=== PATIENT | female | born 1955 | race Caucasian/White ===

== ENCOUNTER 2016-06-26 14:20 | Emergency (ER) | payer OTHER ==
[2016-06-26 16:43] VITALS: BP 123/70
== END 2016-06-26 16:43 | disposition home or self-care (01) ==
LOC: ED 14:20
DX: R10.13 Epigastric pain (principal); I10 Essential (primary) hypertension; E78.00 Pure hypercholesterolemia, unspecified; Z88.1 Allergy status to other antibiotic agents; Z88.6 Allergy status to analgesic agent
CPT/HCPCS: J1885

== ENCOUNTER 2016-06-28 18:20 | Emergency (ER) | payer OTHER | END 2016-06-28 19:40 | disposition left against medical advice (07) | LOC: ED 18:20 | DX: Z53.21 Procedure and treatment not carried out due to patient leaving prior to being seen by health care provider (principal) ==

== ENCOUNTER 2017-03-22 10:27 | Emergency (ER) | payer SELFPAY ==
[2017-03-22 11:59] VITALS: BP 136/89
== END 2017-03-22 11:59 | disposition home or self-care (01) ==
LOC: ED 10:27
DX: K52.9 Noninfective gastroenteritis and colitis, unspecified (principal); I10 Essential (primary) hypertension; E78.00 Pure hypercholesterolemia, unspecified; Z88.1 Allergy status to other antibiotic agents; Z88.6 Allergy status to analgesic agent
CPT/HCPCS: Q0162

== ENCOUNTER 2017-05-29 08:50 | Emergency (ER) | payer MEDICAID ==
[~2017-05-29] VITALS: Ht 170.2 cm; Wt 102.0 kg
[2017-05-29 08:56] VITALS: Ht 170.2 cm; Wt 102.0 kg
[2017-05-29 10:39] VITALS: BP 138/65
== END 2017-05-29 10:39 | disposition home or self-care (01) ==
LOC: ED 08:50
DX: S29.012A Strain of muscle and tendon of back wall of thorax, initial encounter (principal); I10 Essential (primary) hypertension; E78.00 Pure hypercholesterolemia, unspecified; Z88.1 Allergy status to other antibiotic agents; Z88.8 Allergy status to other drugs, medicaments and biological substances; X58.XXXA Exposure to other specified factors, initial encounter; Y93.89 Activity, other specified; Y99.8 Other external cause status; Y92.89 Other specified places as the place of occurrence of the external cause
CPT/HCPCS: J1885; Q0092

== ENCOUNTER 2017-08-17 19:03 | Emergency (ER) | payer OTHER ==
[~2017-08-17] VITALS: Ht 170.2 cm; Wt 103.9 kg
[2017-08-17 19:17] VITALS: BP 141/73; Ht 170.2 cm; Wt 103.9 kg
== END 2017-08-17 21:04 | disposition left against medical advice (07) ==
LOC: ED 19:03
DX: Z53.21 Procedure and treatment not carried out due to patient leaving prior to being seen by health care provider (principal)

== ENCOUNTER 2017-09-17 07:01 | Inpatient (IN) | payer OTHER ==
[~2017-09-17] VITALS: Ht 170.2 cm; Wt 103.0 kg
[2017-09-17 07:05] VITALS: Ht 170.2 cm; Wt 103.0 kg
[2017-09-17 07:38] LABS: BASOPHIL % 0.5 % (0-2); PLATELET COUNT 253 x10^3mcL (130-400); RED CELL DISTRIBUTION WIDTH 13.5 % (11.5-14.5)
[2017-09-17 07:47] LABS: microscopic required? YES; urine erythrocyte NEGATIVE (NEGATIVE)
[2017-09-17 07:53] LABS: ALBUMIN 4.2 g/dL (3.4-5.0); BILIRUBIN TOTAL 0.32 mg/dL (0.20-1.00); CALCIUM 9.1 mg/dL (8.5-10.1); CARBON DIOXIDE 27.2 mmol/L (21-32); CREATININE SERUM 1.1 mg/dL (0.6-1.0)
[2017-09-17 08:04] LABS: TOTAL PROTEIN, SERUM 8.3 g/dL (6.4-8.2)
[2017-09-17 08:05] LABS: POTASSIUM SERUM 2.6 mmol/L (3.5-5.1)
[2017-09-17] MEDS ORDERED: ZESTRIL20 MG PO (08:15)
[2017-09-17] MEDS ORDERED: PRAVASTATIN SOD10 M1 PO (08:15)
[2017-09-17] MEDS ORDERED: HYDROCHLOROTHIA25 MG PO (08:15)
[2017-09-17 11:19] VITALS: BP 119/63
[2017-09-17 11:36] LABS: CHOLESTEROL/HDL RATIO 4.1; MAGNESIUM 1.9 mg/dL (1.8-2.4); PHOSPHOROUS 2.6 mg/dL (2.5-4.9)
[2017-09-17 11:45] LABS: FREE T4 1.03 ng/dL (0.76-1.46); FREE THYROXINE INDEX 3.1 ug/dL (1.4-4.5); T4(THYROXINE) 9.4 ug/dL (4.7-13.3)
[2017-09-17 14:02] LABS: T3 TOTAL 1.55 ng/mL
[2017-09-17 14:35] VITALS: BP 121/67
[2017-09-17 14:58] LABS: CALCIUM 8.2 mg/dL (8.5-10.1); CARBON DIOXIDE 29.9 mmol/L (21-32); CHLORIDE SERUM 106 mmol/L (98-107); GFR1 > 60 mL/min; GLUCOSE SERUM 151 mg/dL (74-106); POTASSIUM SERUM 3.6 mmol/L (3.5-5.1); SODIUM SERUM 144 mmol/L (136-145)
[2017-09-17 15:47] LABS: AMPHETAMINE QUAL UR NONE DETECTED
[2017-09-17 17:57] VITALS: BP 119/66
[2017-09-17 22:08] VITALS: BP 136/72
[2017-09-18 05:15] VITALS: BP 127/69
[2017-09-18 07:17] LABS: BASOPHIL % 0.6 % (0-2); PLATELET COUNT 220 x10^3mcL (130-400); RED CELL DISTRIBUTION WIDTH 13.4 % (11.5-14.5)
[2017-09-18 07:29] LABS: CALCIUM 8.2 mg/dL (8.5-10.1); CARBON DIOXIDE 27.1 mmol/L (21-32); CHLORIDE SERUM 108 mmol/L (98-107); GFR1 > 60 mL/min; GLUCOSE SERUM 109 mg/dL (74-106); POTASSIUM SERUM 3.8 mmol/L (3.5-5.1); SODIUM SERUM 141 mmol/L (136-145)
[2017-09-18 08:00] VITALS: BP 133/80
[2017-09-18 13:20] VITALS: BP 143/56
[2017-09-18 17:00] VITALS: BP 139/67
[2017-09-18 20:59] VITALS: BP 122/71
[2017-09-19 05:38] VITALS: BP 144/72
[2017-09-19 07:03] LABS: CALCIUM 8.3 mg/dL (8.5-10.1); CARBON DIOXIDE 28.2 mmol/L (21-32); CHLORIDE SERUM 109 mmol/L (98-107); CREATININE SERUM 0.8 mg/dL (0.6-1.0); GFR1 > 60 mL/min; GLUCOSE SERUM 105 mg/dL (74-106); MAGNESIUM 2.1 mg/dL (1.8-2.4); PHOSPHOROUS 3.4 mg/dL (2.5-4.9); SODIUM SERUM 144 mmol/L (136-145)
[2017-09-19 07:25] LABS: BASOPHIL % 0.6 % (0-2); PLATELET COUNT 225 x10^3mcL (130-400); RED CELL DISTRIBUTION WIDTH 13.6 % (11.5-14.5)
[2017-09-19] MEDS ORDERED: AUG500 PO (09:05)
[2017-09-19] MEDS ORDERED: LAC PO (09:06)
[2017-09-19 09:43] VITALS: BP 131/76
[2017-09-19 13:01] VITALS: BP 131/76
== END 2017-09-19 13:51 | disposition home or self-care (01) | DRG 463 ==
LOC: ED 07:01 → DU 09:42
PROVIDERS: Emergency Medicine; Family Medicine; Student in an Organized Health Care Education/Training Program
DX: N39.0 Urinary tract infection, site not specified (principal); E87.2 Acidosis; E87.6 Hypokalemia; E86.0 Dehydration; I10 Essential (primary) hypertension; E78.00 Pure hypercholesterolemia, unspecified; G90.8 Other disorders of autonomic nervous system; F17.200 Nicotine dependence, unspecified, uncomplicated; E66.9 Obesity, unspecified; Z68.35 Body mass index [BMI] 35.0-35.9, adult; Z88.6 Allergy status to analgesic agent; Z88.1 Allergy status to other antibiotic agents; Z90.710 Acquired absence of both cervix and uterus
CPT/HCPCS: 83880; 84439; J0696; J2060; J2405; J3480; J7030; Q0092

== ENCOUNTER 2017-11-09 10:04 | Emergency (ER) | payer OTHER ==
[~2017-11-09] VITALS: Ht 170.2 cm; Wt 102.7 kg
[~2017-11-09 10:04] MED LIST: AUG500 PO; HYDROCHLOROTHIA25 MG PO; LAC PO; PRAVASTATIN SOD10 M1 PO; ZESTRIL20 MG PO
[2017-11-09 10:29] VITALS: BP 147/66; Ht 170.2 cm; Wt 102.7 kg
== END 2017-11-09 13:06 | disposition left against medical advice (07) ==
LOC: ED 10:04
DX: Z53.21 Procedure and treatment not carried out due to patient leaving prior to being seen by health care provider (principal)

== ENCOUNTER 2020-03-07 14:16 | Emergency (ER) | payer OTHER, SELFPAY ==
[~2020-03-07] VITALS: Ht 170.2 cm; Wt 103.4 kg
[2020-03-07 14:17] VITALS: BP 133/76; Ht 170.2 cm; Wt 103.4 kg
== END 2020-03-07 15:43 | disposition home or self-care (01) ==
LOC: ED 14:16
DX: R11.0 Nausea (principal); I10 Essential (primary) hypertension; E78.00 Pure hypercholesterolemia, unspecified; E66.9 Obesity, unspecified; Z68.35 Body mass index [BMI] 35.0-35.9, adult; Z90.711 Acquired absence of uterus with remaining cervical stump; Z88.1 Allergy status to other antibiotic agents; Z88.6 Allergy status to analgesic agent
CPT/HCPCS: 99406

== ENCOUNTER 2020-03-08 17:10 | Emergency (ER) | payer OTHER, SELFPAY ==
[~2020-03-08] VITALS: Ht 172.7 cm; Wt 103.4 kg
[2020-03-08 17:18] VITALS: BP 164/78; Ht 172.7 cm; Wt 103.4 kg
== END 2020-03-08 18:17 | disposition home or self-care (01) ==
LOC: ED 17:10
DX: J06.9 Acute upper respiratory infection, unspecified (principal); I10 Essential (primary) hypertension; E78.00 Pure hypercholesterolemia, unspecified; Z20.828 Contact with and (suspected) exposure to other viral communicable diseases; Z90.711 Acquired absence of uterus with remaining cervical stump; Z88.1 Allergy status to other antibiotic agents; Z88.6 Allergy status to analgesic agent
CPT/HCPCS: U0003

== ENCOUNTER 2020-03-13 20:05 | Emergency (ER) | payer OTHER | END 2020-03-13 21:43 | disposition left against medical advice (07) | LOC: ED 20:05 | DX: Z53.21 Procedure and treatment not carried out due to patient leaving prior to being seen by health care provider (principal) ==

== ENCOUNTER 2020-03-14 10:39 | Emergency (ER) | payer OTHER, SELFPAY ==
[~2020-03-14] VITALS: Ht 170.2 cm; Wt 98.4 kg
[2020-03-14 10:51] VITALS: Ht 170.2 cm; Wt 98.4 kg
[2020-03-14 11:47] LABS: UA SPECIFIC GRAVITY 1.015 (1.005-1.035); microscopic required? YES; urine erythrocyte NEGATIVE (NEGATIVE)
[2020-03-14 12:17] VITALS: BP 120/60
== END 2020-03-14 12:17 | disposition home or self-care (01) ==
LOC: ED 10:39
DX: N39.0 Urinary tract infection, site not specified (principal); I10 Essential (primary) hypertension; E78.00 Pure hypercholesterolemia, unspecified; Z88.1 Allergy status to other antibiotic agents; Z90.710 Acquired absence of both cervix and uterus

== ENCOUNTER 2020-03-23 12:35 | Emergency (ER) | payer OTHER ==
[~2020-03-23] VITALS: Ht 170.2 cm; Wt 98.4 kg
[2020-03-23 12:51] VITALS: BP 136/57; Ht 170.2 cm; Wt 98.4 kg
== END 2020-03-23 15:16 | disposition left against medical advice (07) ==
LOC: ED 12:35
DX: Z53.21 Procedure and treatment not carried out due to patient leaving prior to being seen by health care provider (principal)

== ENCOUNTER 2020-03-23 15:48 | Emergency (ER) | payer OTHER ==
[~2020-03-23] VITALS: Ht 170.2 cm; Wt 98.4 kg
[2020-03-23 16:00] VITALS: BP 143/71; Ht 170.2 cm; Wt 98.4 kg
== END 2020-03-23 17:05 | disposition home or self-care (01) ==
LOC: ED 15:48
DX: N39.0 Urinary tract infection, site not specified (principal); I10 Essential (primary) hypertension; E78.00 Pure hypercholesterolemia, unspecified; Z88.6 Allergy status to analgesic agent

== ENCOUNTER 2020-03-25 11:25 | Emergency (ER) | payer OTHER ==
[~2020-03-25] VITALS: Ht 170.2 cm; Wt 98.4 kg
[2020-03-25 11:28] VITALS: BP 148/82; Ht 170.2 cm; Wt 98.4 kg
== END 2020-03-25 11:55 | disposition home or self-care (01) ==
LOC: ED 11:25
DX: N39.0 Urinary tract infection, site not specified (principal); K59.00 Constipation, unspecified; I10 Essential (primary) hypertension; E78.00 Pure hypercholesterolemia, unspecified; F17.210 Nicotine dependence, cigarettes, uncomplicated; Z90.710 Acquired absence of both cervix and uterus; Z88.1 Allergy status to other antibiotic agents

== ENCOUNTER 2020-04-16 21:00 | Emergency (ER) | payer OTHER ==
[~2020-04-16] VITALS: Ht 170.2 cm; Wt 94.8 kg
[2020-04-16 21:16] VITALS: BP 130/57
[2020-04-16 23:40] LABS: UA SPECIFIC GRAVITY <=1.005 (1.005-1.035); microscopic required? YES; urine erythrocyte NEGATIVE (NEGATIVE)
[2020-04-16 23:56] LABS: PLATELET COUNT 252 x10^3mcL (179-408); RED CELL DISTRIBUTION WIDTH 12.8 % (12.3-17.7)
[2020-04-17 00:09] LABS: CALCIUM 9.1 mg/dL (8.5-10.1); CARBON DIOXIDE 30.8 mmol/L (21-32); POTASSIUM SERUM 3.3 mmol/L (3.5-5.1)
[2020-04-17 00:14] LABS: BILIRUBIN TOTAL 0.4 mg/dL (0.20-1.00); TOTAL PROTEIN, SERUM 7.4 g/dL (6.4-8.2)
== END 2020-04-17 00:44 | disposition home or self-care (01) ==
LOC: ED 21:00
PROVIDERS: Emergency Medicine
DX: R10.30 Lower abdominal pain, unspecified (principal); I10 Essential (primary) hypertension; E78.00 Pure hypercholesterolemia, unspecified; Z90.710 Acquired absence of both cervix and uterus; Z88.6 Allergy status to analgesic agent

== ENCOUNTER 2020-04-17 09:23 | Emergency (ER) | payer OTHER ==
[~2020-04-17] VITALS: Ht 165.1 cm; Wt 93.9 kg
[2020-04-17 09:43] VITALS: Ht 165.1 cm; Wt 93.9 kg
[2020-04-17 12:15] VITALS: BP 132/57
== END 2020-04-17 12:15 | disposition home or self-care (01) ==
LOC: ED 09:23
DX: R42 Dizziness and giddiness (principal); J32.9 Chronic sinusitis, unspecified; I10 Essential (primary) hypertension; E78.00 Pure hypercholesterolemia, unspecified; Z88.6 Allergy status to analgesic agent
CPT/HCPCS: J8597

== ENCOUNTER 2020-04-22 18:16 | Emergency (ER) | payer OTHER ==
[~2020-04-22] VITALS: Ht 170.2 cm; Wt 93.4 kg
[2020-04-22 20:54] VITALS: BP 155/79
== END 2020-04-22 20:54 | disposition home or self-care (01) ==
LOC: ED 18:16
DX: K29.70 Gastritis, unspecified, without bleeding (principal); R42 Dizziness and giddiness; I10 Essential (primary) hypertension; E78.00 Pure hypercholesterolemia, unspecified; Z88.1 Allergy status to other antibiotic agents; Z88.6 Allergy status to analgesic agent; Z90.710 Acquired absence of both cervix and uterus
CPT/HCPCS: J8597

== ENCOUNTER 2020-04-22 22:48 | Emergency (ER) | payer OTHER ==
[~2020-04-22] VITALS: Ht 170.2 cm; Wt 93.7 kg
[2020-04-22 23:08] VITALS: BP 181/75; Ht 170.2 cm; Wt 93.7 kg
== END 2020-04-22 23:27 | disposition home or self-care (01) ==
LOC: ED 22:48
DX: E87.6 Hypokalemia (principal); R11.0 Nausea; I10 Essential (primary) hypertension; E78.00 Pure hypercholesterolemia, unspecified; Z88.1 Allergy status to other antibiotic agents; Z90.710 Acquired absence of both cervix and uterus

== ENCOUNTER 2020-04-23 11:39 | Emergency (ER) | payer OTHER ==
[~2020-04-23] VITALS: Ht 170.2 cm; Wt 93.9 kg
[2020-04-23 12:41] VITALS: BP 135/666; Ht 170.2 cm; Wt 93.9 kg
== END 2020-04-23 13:09 | disposition home or self-care (01) ==
LOC: ED 11:39
DX: R42 Dizziness and giddiness (principal); I10 Essential (primary) hypertension; E78.00 Pure hypercholesterolemia, unspecified; Z90.710 Acquired absence of both cervix and uterus; Z88.1 Allergy status to other antibiotic agents

== ENCOUNTER 2020-05-10 19:37 | Emergency (ER) | payer OTHER ==
[~2020-05-10] VITALS: Ht 170.2 cm; Wt 92.5 kg
[2020-05-10 19:58] VITALS: Ht 170.2 cm; Wt 92.5 kg
[2020-05-10 21:13] VITALS: BP 140/83
== END 2020-05-10 21:13 | disposition home or self-care (01) ==
LOC: ED 19:37
DX: J34.89 Other specified disorders of nose and nasal sinuses (principal); J33.9 Nasal polyp, unspecified; I10 Essential (primary) hypertension; E78.00 Pure hypercholesterolemia, unspecified; Z88.1 Allergy status to other antibiotic agents; Z88.5 Allergy status to narcotic agent; Z90.710 Acquired absence of both cervix and uterus

== ENCOUNTER 2020-05-11 17:08 | Emergency (ER) | payer OTHER ==
[~2020-05-11] VITALS: Ht 170.2 cm; Wt 91.6 kg
[2020-05-11 17:28] VITALS: Ht 170.2 cm; Wt 91.6 kg
[2020-05-11 18:02] LABS: BASOPHIL % 1.9 % (0.2-1.3); PLATELET COUNT 240 x10^3mcL (179-408); RED CELL DISTRIBUTION WIDTH 12.8 % (12.3-17.7)
[2020-05-11 18:19] LABS: CALCIUM 8.8 mg/dL (8.5-10.1); CHLORIDE SERUM 102 mmol/L (98-107); CREATININE SERUM 0.9 mg/dL (0.6-1.0); GFR1 > 60 mL/min; GLUCOSE SERUM 106 mg/dL (74-106); POTASSIUM SERUM 3.2 mmol/L (3.5-5.1); SODIUM SERUM 140 mmol/L (136-145)
[2020-05-11 18:24] LABS: ALBUMIN 3.9 g/dL (3.4-5.0); ALKALINE PHOSPHATASE 52 U/L (46-116); ALT/SGPT 23 U/L (14-59); AST/SGOT 13 U/L (15-37); BILIRUBIN TOTAL 0.3 mg/dL (0.20-1.00); CHOLESTEROL 167 mg/dL (<200); HDL CHOLESTEROL 47 mg/dL (40-60); LIPASE 78 IU/L (73-393); TOTAL PROTEIN, SERUM 7.5 g/dL (6.4-8.2)
[2020-05-11 18:40] LABS: microscopic required? YES; urine erythrocyte NEGATIVE (NEGATIVE)
[2020-05-11 19:15] LABS: AMPHETAMINE QUAL UR NONE DETECTED (See below)
[2020-05-11 19:46] VITALS: BP 104/67
== END 2020-05-11 19:59 | disposition home or self-care (01) ==
LOC: ED 17:08
PROVIDERS: Emergency Medicine
DX: K80.20 Calculus of gallbladder without cholecystitis without obstruction (principal); N39.0 Urinary tract infection, site not specified; I10 Essential (primary) hypertension; E78.00 Pure hypercholesterolemia, unspecified; E66.8 Other obesity; F17.210 Nicotine dependence, cigarettes, uncomplicated; Z68.31 Body mass index [BMI] 31.0-31.9, adult; Z90.710 Acquired absence of both cervix and uterus; Z88.1 Allergy status to other antibiotic agents
CPT/HCPCS: 83880; 99406; J1885

== ENCOUNTER 2020-05-15 17:45 | Emergency (ER) | payer OTHER ==
[~2020-05-15] VITALS: Ht 170.2 cm; Wt 89.8 kg
[2020-05-15 17:49] VITALS: Ht 170.2 cm; Wt 89.8 kg
[2020-05-15 18:25] LABS: BASOPHIL % 1.7 % (0.2-1.3); PLATELET COUNT 243 x10^3mcL (179-408); RED CELL DISTRIBUTION WIDTH 12.5 % (12.3-17.7)
[2020-05-15 18:42] LABS: CALCIUM 10.1 mg/dL (8.5-10.1); CARBON DIOXIDE 28.6 mmol/L (21-32); POTASSIUM SERUM 3.3 mmol/L (3.5-5.1)
[2020-05-15 18:47] LABS: ALBUMIN 4.2 g/dL (3.4-5.0); BILIRUBIN TOTAL 0.49 mg/dL (0.20-1.00); TOTAL PROTEIN, SERUM 7.9 g/dL (6.4-8.2)
[2020-05-15 19:09] VITALS: BP 125/74
== END 2020-05-15 19:09 | disposition home or self-care (01) ==
LOC: ED 17:45
PROVIDERS: Emergency Medicine
DX: K80.50 Calculus of bile duct without cholangitis or cholecystitis without obstruction (principal); I10 Essential (primary) hypertension; E78.00 Pure hypercholesterolemia, unspecified; Z90.710 Acquired absence of both cervix and uterus; Z88.5 Allergy status to narcotic agent; Z88.1 Allergy status to other antibiotic agents

== ENCOUNTER 2020-05-23 21:38 | Emergency (ER) | payer OTHER ==
[~2020-05-23] VITALS: Ht 170.2 cm; Wt 89.8 kg
[2020-05-23 21:59] VITALS: Ht 170.2 cm; Wt 89.8 kg
[2020-05-23 23:16] LABS: PLATELET COUNT 236 x10^3mcL (179-408); RED CELL DISTRIBUTION WIDTH 12.9 % (12.3-17.7)
[2020-05-23 23:33] LABS: CHLORIDE SERUM 100 mmol/L (98-107); CREATININE SERUM 0.8 mg/dL (0.6-1.0); GFR1 > 60 mL/min; GLUCOSE SERUM 90 mg/dL (74-106); POTASSIUM SERUM 3.6 mmol/L (3.5-5.1); SODIUM SERUM 135 mmol/L (136-145)
[2020-05-23 23:34] LABS: ALBUMIN 3.7 g/dL (3.4-5.0); ALKALINE PHOSPHATASE 50 U/L (46-116); ALT/SGPT 24 U/L (14-59); AMYLASE 97 U/L (25-115); AST/SGOT 16 U/L (15-37); BILIRUBIN TOTAL 0.3 mg/dL (0.20-1.00); LIPASE 87 IU/L (73-393); TOTAL PROTEIN, SERUM 7.2 g/dL (6.4-8.2)
[2020-05-23] MEDS ORDERED: CARAFATE1 GM/10 ML PO (23:45)
[2020-05-23] MEDS ORDERED: PEPCID AC20 M2 PO (23:45)
[2020-05-24 00:05] VITALS: BP 132/75
== END 2020-05-24 00:05 | disposition home or self-care (01) ==
LOC: ED 21:38
PROVIDERS: Emergency Medicine
DX: R10.13 Epigastric pain (principal); I10 Essential (primary) hypertension; Z88.1 Allergy status to other antibiotic agents; E78.00 Pure hypercholesterolemia, unspecified; Z90.710 Acquired absence of both cervix and uterus
CPT/HCPCS: J1885

== ENCOUNTER 2020-05-24 18:56 | Emergency (ER) | payer OTHER ==
[~2020-05-24] VITALS: Ht 170.2 cm; Wt 90.7 kg
[~2020-05-24 18:56] MED LIST changes: +CARAFATE1 GM/10 ML PO; +PEPCID AC20 M2 PO
[2020-05-24 19:44] VITALS: BP 135/57; Ht 170.2 cm; Wt 90.7 kg
== END 2020-05-24 21:00 | disposition home or self-care (01) ==
LOC: ED 18:56
DX: R10.13 Epigastric pain (principal); I10 Essential (primary) hypertension; E78.00 Pure hypercholesterolemia, unspecified; Z90.710 Acquired absence of both cervix and uterus; Z88.1 Allergy status to other antibiotic agents
CPT/HCPCS: J1885

== ENCOUNTER 2020-05-26 10:28 | Emergency (ER) | payer OTHER ==
[~2020-05-26] VITALS: Ht 170.2 cm; Wt 82.6 kg
[2020-05-26 10:45] VITALS: Ht 170.2 cm; Wt 82.6 kg
[2020-05-26 11:31] VITALS: BP 112/41
[2020-05-27] MEDS ORDERED: ACID REDUCER20 MG PO (15:32)
[2020-05-27] MEDS ORDERED: PEPCID AC20 M2 PO (15:32)
== END 2020-05-26 11:31 | disposition home or self-care (01) ==
LOC: ED 10:28
DX: J32.9 Chronic sinusitis, unspecified (principal); I10 Essential (primary) hypertension; E78.00 Pure hypercholesterolemia, unspecified; Z90.710 Acquired absence of both cervix and uterus; Z88.1 Allergy status to other antibiotic agents

== ENCOUNTER 2020-05-26 16:21 | Emergency (ER) | payer OTHER ==
[~2020-05-26] VITALS: Ht 172.7 cm; Wt 90.3 kg
[2020-05-26 16:48] VITALS: Ht 172.7 cm; Wt 90.3 kg
[2020-05-26 18:20] VITALS: BP 144/66
[2020-05-27] MEDS ORDERED: PEPCID AC20 M2 PO (15:32)
[2020-05-27] MEDS ORDERED: ACID REDUCER20 MG PO (15:32)
== END 2020-05-26 18:20 | disposition home or self-care (01) ==
LOC: ED 16:21
DX: R11.0 Nausea (principal)

== ENCOUNTER 2020-05-27 13:48 | Emergency (ER) | payer OTHER ==
[~2020-05-27] VITALS: Ht 170.2 cm; Wt 90.3 kg
[2020-05-27 14:05] VITALS: Ht 170.2 cm; Wt 90.3 kg
[2020-05-27] MEDS ORDERED: PEPCID AC20 M2 PO (15:32)
[2020-05-27] MEDS ORDERED: ACID REDUCER20 MG PO (15:32)
[2020-05-27 16:09] VITALS: BP 133/66
== END 2020-05-27 16:09 | disposition home or self-care (01) ==
LOC: ED 13:48
DX: K27.9 Peptic ulcer, site unspecified, unspecified as acute or chronic, without hemorrhage or perforation (principal); I10 Essential (primary) hypertension; E78.00 Pure hypercholesterolemia, unspecified; Z90.710 Acquired absence of both cervix and uterus; Z88.8 Allergy status to other drugs, medicaments and biological substances; Z88.5 Allergy status to narcotic agent
CPT/HCPCS: J1885

== ENCOUNTER 2020-05-27 18:14 | Emergency (ER) | payer OTHER ==
[~2020-05-27] VITALS: Ht 170.2 cm; Wt 88.9 kg
[~2020-05-27 18:14] MED LIST changes: +ACID REDUCER20 MG PO
[2020-05-27 18:29] VITALS: Ht 170.2 cm; Wt 88.9 kg
[2020-05-27 20:34] VITALS: BP 137/90
== END 2020-05-27 20:34 | disposition home or self-care (01) ==
LOC: ED 18:14
DX: F41.9 Anxiety disorder, unspecified (principal); I10 Essential (primary) hypertension; E78.00 Pure hypercholesterolemia, unspecified; Z13.9 Encounter for screening, unspecified; Z98.890 Other specified postprocedural states; Z88.6 Allergy status to analgesic agent; Z88.8 Allergy status to other drugs, medicaments and biological substances
CPT/HCPCS: 82962; J8597

== ENCOUNTER 2020-05-30 18:05 | Emergency (ER) | payer OTHER ==
[~2020-05-30] VITALS: Ht 172.7 cm; Wt 89.4 kg
[2020-05-30 18:16] VITALS: BP 149/71; Ht 172.7 cm; Wt 89.4 kg
== END 2020-05-30 18:57 | disposition home or self-care (01) ==
LOC: ED 18:05
DX: J32.9 Chronic sinusitis, unspecified (principal); J30.9 Allergic rhinitis, unspecified; I10 Essential (primary) hypertension; E78.00 Pure hypercholesterolemia, unspecified; Z87.442 Personal history of urinary calculi; Z90.710 Acquired absence of both cervix and uterus; Z88.1 Allergy status to other antibiotic agents

== ENCOUNTER 2020-06-01 14:40 | Emergency (ER) | payer OTHER ==
[~2020-06-01] VITALS: Ht 170.2 cm; Wt 88.9 kg
[2020-06-01 15:02] VITALS: Ht 170.2 cm; Wt 88.9 kg
[2020-06-01 17:10] VITALS: BP 142/63
== END 2020-06-01 17:10 | disposition home or self-care (01) ==
LOC: ED 14:40
DX: J32.9 Chronic sinusitis, unspecified (principal); R42 Dizziness and giddiness; I10 Essential (primary) hypertension; E78.00 Pure hypercholesterolemia, unspecified; Z90.710 Acquired absence of both cervix and uterus
CPT/HCPCS: 82962; J8597

== ENCOUNTER 2020-06-01 20:04 | Emergency (ER) | payer OTHER ==
[~2020-06-01] VITALS: Ht 170.2 cm; Wt 89.4 kg
[2020-06-01 20:09] VITALS: BP 153/50; Ht 170.2 cm; Wt 89.4 kg
== END 2020-06-01 22:20 | disposition left against medical advice (07) ==
LOC: ED 20:04
DX: Z53.21 Procedure and treatment not carried out due to patient leaving prior to being seen by health care provider (principal)

== ENCOUNTER 2020-06-23 01:25 | Emergency (ER) | payer OTHER ==
[~2020-06-23] VITALS: Ht 170.2 cm; Wt 91.2 kg
[2020-06-23] MEDS ORDERED: PEPCID40 MG PO (01:38)
[2020-06-23] MEDS ORDERED: ZOF4 PO (01:38)
[2020-06-23 01:44] VITALS: Ht 170.2 cm; Wt 91.2 kg
[2020-06-23 02:06] VITALS: BP 137/77
[2020-06-23] MEDS ORDERED: CITRATE OF MAG296 ML PO (13:31)
== END 2020-06-23 02:06 | disposition home or self-care (01) ==
LOC: ED 01:25
DX: K29.70 Gastritis, unspecified, without bleeding (principal); I10 Essential (primary) hypertension; E78.00 Pure hypercholesterolemia, unspecified; Z90.710 Acquired absence of both cervix and uterus; Z87.19 Personal history of other diseases of the digestive system; Z88.1 Allergy status to other antibiotic agents; Z88.5 Allergy status to narcotic agent
CPT/HCPCS: Q0162

== ENCOUNTER 2020-06-23 10:08 | Emergency (ER) | payer OTHER ==
[~2020-06-23] VITALS: Ht 170.2 cm; Wt 89.4 kg
[~2020-06-23 10:08] MED LIST changes: +PEPCID40 MG PO; +ZOF4 PO
[2020-06-23 10:16] VITALS: Ht 170.2 cm; Wt 89.4 kg
[2020-06-23] MEDS ORDERED: CITRATE OF MAG296 ML PO (13:31)
[2020-06-23 13:48] VITALS: BP 145/81
== END 2020-06-23 13:48 | disposition home or self-care (01) ==
LOC: ED 10:08
DX: K56.41 Fecal impaction (principal); I10 Essential (primary) hypertension; E78.00 Pure hypercholesterolemia, unspecified; Z90.710 Acquired absence of both cervix and uterus; Z87.19 Personal history of other diseases of the digestive system; Z88.1 Allergy status to other antibiotic agents; Z88.5 Allergy status to narcotic agent

== ENCOUNTER 2020-06-25 14:21 | Emergency (ER) | payer OTHER ==
[~2020-06-25] VITALS: Ht 170.2 cm; Wt 90.7 kg
[~2020-06-25 14:21] MED LIST changes: +CITRATE OF MAG296 ML PO
[2020-06-25 14:45] VITALS: BP 120/67; Ht 170.2 cm; Wt 90.7 kg
[2020-06-25] MEDS ORDERED: MACROBID100 MG PO (15:27)
[2020-06-25 15:45] LABS: UA SPECIFIC GRAVITY 1.015 (1.005-1.035); microscopic required? YES; urine erythrocyte NEGATIVE (NEGATIVE)
[2020-06-26] MEDS ORDERED: GOOD NEIGHBOR M25 MG PO (17:32)
[2020-06-26] MEDS ORDERED: ZOFRAN4 M3 PO (17:32)
== END 2020-06-25 16:02 | disposition home or self-care (01) ==
LOC: ED 14:21
PROVIDERS: Emergency Medicine
DX: N39.0 Urinary tract infection, site not specified (principal); I10 Essential (primary) hypertension; E78.00 Pure hypercholesterolemia, unspecified; Z90.89 Acquired absence of other organs; Z87.19 Personal history of other diseases of the digestive system; Z88.1 Allergy status to other antibiotic agents; Z88.5 Allergy status to narcotic agent

== ENCOUNTER 2020-06-25 18:46 | Emergency (ER) | payer OTHER ==
[~2020-06-25] VITALS: Ht 170.2 cm; Wt 88.9 kg
[~2020-06-25 18:46] MED LIST changes: +MACROBID100 MG PO
[2020-06-25 19:04] VITALS: BP 130/51; Ht 170.2 cm; Wt 88.9 kg
[2020-06-26] MEDS ORDERED: ZOFRAN4 M3 PO (17:32)
[2020-06-26] MEDS ORDERED: GOOD NEIGHBOR M25 MG PO (17:32)
== END 2020-06-25 20:44 | disposition home or self-care (01) ==
LOC: ED 18:46
DX: R10.13 Epigastric pain (principal); R19.7 Diarrhea, unspecified; I10 Essential (primary) hypertension; E78.00 Pure hypercholesterolemia, unspecified; Z90.710 Acquired absence of both cervix and uterus; Z88.1 Allergy status to other antibiotic agents; Z88.6 Allergy status to analgesic agent
CPT/HCPCS: J1885; Q0162

== ENCOUNTER 2020-06-26 15:07 | Emergency (ER) | payer OTHER ==
[~2020-06-26] VITALS: Ht 170.2 cm; Wt 88.9 kg
[2020-06-26 15:13] VITALS: Ht 170.2 cm; Wt 88.9 kg
[2020-06-26 16:08] LABS: BASOPHIL % 1.9 % (0.2-1.3); PLATELET COUNT 310 x10^3mcL (179-408); RED CELL DISTRIBUTION WIDTH 13.3 % (12.3-17.7)
[2020-06-26 16:30] LABS: CALCIUM 9.6 mg/dL (8.5-10.1); CHLORIDE SERUM 99 mmol/L (98-107); CREATININE SERUM 1.2 mg/dL (0.6-1.0); GFR1 48 mL/min; GLUCOSE SERUM 94 mg/dL (74-106); POTASSIUM SERUM 3.3 mmol/L (3.5-5.1); SODIUM SERUM 137 mmol/L (136-145)
[2020-06-26 16:35] LABS: ALBUMIN 4.1 g/dL (3.4-5.0); ALKALINE PHOSPHATASE 74 U/L (46-116); ALT/SGPT 25 U/L (14-59); AST/SGOT 21 U/L (15-37); BILIRUBIN TOTAL 0.51 mg/dL (0.20-1.00); TOTAL PROTEIN, SERUM 8.3 g/dL (6.4-8.2)
[2020-06-26] MEDS ORDERED: ZOFRAN4 M3 PO (17:32)
[2020-06-26] MEDS ORDERED: GOOD NEIGHBOR M25 MG PO (17:32)
[2020-06-26 17:33] LABS: UA SPECIFIC GRAVITY <=1.005 (1.005-1.035); microscopic required? YES; urine erythrocyte TRACE (NEGATIVE)
[2020-06-26 17:34] LABS: AMPHETAMINE QUAL UR NONE DETECTED (See below)
[2020-06-26 18:08] VITALS: BP 152/71
== END 2020-06-26 16:05 | disposition home or self-care (01) ==
LOC: ED 15:07
PROVIDERS: Emergency Medicine
DX: R42 Dizziness and giddiness (principal); R09.89 Other specified symptoms and signs involving the circulatory and respiratory systems; R51.9 Headache, unspecified; I10 Essential (primary) hypertension; E78.00 Pure hypercholesterolemia, unspecified; Z90.710 Acquired absence of both cervix and uterus; Z87.19 Personal history of other diseases of the digestive system; Z88.1 Allergy status to other antibiotic agents; Z88.5 Allergy status to narcotic agent
CPT/HCPCS: G0480; J2405; J7030; J8597